=== PATIENT | female | born 1995 | race Caucasian/White ===

== ENCOUNTER 2017-12-10 22:28 | Emergency (ER) | payer OTHER, MEDICAID ==
[~2017-12-10] VITALS: Ht 160 cm; Wt 65.8 kg
[~2017-12-10 22:28] MED LIST: BACTRIM DS TAB1 EACH PO; IBUPROFEN 600600 M1 PO; NOHOMEMEDICATIONS; NORCO 10-325 T1 EACH PO; NORCO 5-325 TA1 EACH PO; PYRIDIUM200 MG PO; TRAMADOL 50 MG50 MG PO
[2017-12-10] MEDS ORDERED: ULTRAM 50MG TAB50 MG PO (22:57)
[2017-12-10 23:09] VITALS: BP 143/79
== END 2017-12-10 23:10 | disposition home or self-care (01) ==
LOC: M.ERS 22:28
DX: S60.211A Contusion of right wrist, initial encounter (principal); S40.011A Contusion of right shoulder, initial encounter; W10.9XXA Fall (on) (from) unspecified stairs and steps, initial encounter; Y93.89 Activity, other specified; Y92.89 Other specified places as the place of occurrence of the external cause; Y99.8 Other external cause status

== ENCOUNTER 2019-07-23 14:48 | Emergency (ER) | payer OTHER ==
[~2019-07-23] VITALS: Ht 160 cm; Wt 77.1 kg
[~2019-07-23 14:48] MED LIST changes: +ULTRAM 50MG TAB50 MG PO
[2019-07-23] MEDS ORDERED: LISINOPRIL2.5 MG PO (14:57)
[2019-07-23] MEDS ORDERED: ALPRAZOLAM XR3 MG PO (14:57)
[2019-07-23 15:21] LABS: URINE BILIRUBIN NEGATIVE (Negative); URINE BLOOD TRACE (Negative); URINE CLARITY SL CLOUDY; URINE COLOR YELLOW; URINE GLUCOSE-RANDOM NEGATIVE (Negative); URINE KETONES NEGATIVE (Negative); URINE LEUKOCYTES-REFLEX 1+ (Negative); URINE PROTEIN TRACE (Negative); URINE SPECIFIC GRAVITY >= 1.030 (1.005-1.030)
[2019-07-23 15:22] LABS: URINE NITRITE-REFLEX POSITIVE (Negative)
[2019-07-23 15:31] LABS: SQUAMOUS >10 Many /LPF (0-3)
[2019-07-23 15:32] LABS: BACTERIA-REFLEX >30 Many /HPF (None Seen); CASTS None Seen /LPF (None Seen); CRYSTALS None Seen /LPF (None Seen); MUCUS 4-6 Moderate strn/LPF (None Seen); URINE RBC 3-10 Few /HPF (0-2)
[2019-07-23 16:18] LABS: ABSOLUTE BASOPHILS 0.1 thou/uL (0.0-0.2); ABSOLUTE EOSINOPHILS 0.1 thou/uL (0.0-0.7); ABSOLUTE LYMPHOCYTES 2.6 thou/uL (0.8-5.3); ABSOLUTE MONOCYTES 0.7 thou/uL (0.0-1.2); ABSOLUTE NEUTROPHILS 6.6 thou/uL (1.6-8.1); HEMATOCRIT 41.2 % (37.0-47.0); HEMOGLOBIN 13.9 gm/dL (12.0-15.0); LYMPHOCYTES 25.4 %; MCH 28.8 pg (26.0-34.0); MCHC 33.8 g/dL (28.0-37.0); MCV 85.4 fL (80.0-100.0); MONOCYTES 6.9 %; MPV 8.2 fl. (7.2-11.1); NUCLEATED RBCS 0 /100WBC; PLATELET COUNT* 301 thou/uL (150-400); POLYS 65.7 %; RBC 4.82 mil/uL (4.20-5.00); RDW-CV 13.8 % (10.5-14.5); WBC 10.1 thou/uL (4.0-11.0)
[2019-07-23 16:30] LABS: CALCIUM 9.1 mg/dL (8.5-10.1); CREATININE 0.7 mg/dL (0.6-1.3); POTASSIUM 3.8 mmol/L (3.5-5.1)
[2019-07-23 16:34] LABS: ALBUMIN 3.6 g/dL (3.4-5.0); TOTAL BILIRUBIN 0.4 mg/dL (<0.1-1.0); TOTAL PROTEIN 7.5 g/dL (6.4-8.2)
[2019-07-23] MEDS ORDERED: ONDANSETRON HCL4 M2 PO ×3 (17:33→17:34)
[2019-07-23] MEDS ORDERED: MACROBID 100 M100 M2 PO ×3 (17:33→17:34)
[2019-07-23] MEDS ORDERED: HYDROXYZINE HCL25 M2 PO ×3 (17:33→17:34)
[2019-07-23] MEDS ORDERED: NABUMETONE 750750 M1 PO ×3 (17:33→17:34)
[2019-07-23 18:07] VITALS: BP 109/65
--- NOTE | 2019-07-24 11:42 | EKG ---
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
[2019-07-24] MEDS ORDERED: PHENAZOPYRIDIN200 M2 PO ×3 (16:46→16:47)
[2019-07-24] MEDS ORDERED: KEFLEX500 M1 PO (16:47)
== END 2019-07-23 18:08 ==
LOC: M.ERS 14:48
PROVIDERS: Nurse Practitioner Family
DX: F41.9 Anxiety disorder, unspecified (principal); N39.0 Urinary tract infection, site not specified; I10 Essential (primary) hypertension

== ENCOUNTER 2019-07-24 15:13 | Emergency (ER) | payer OTHER ==
[~2019-07-24] VITALS: Ht 160 cm; Wt 77.1 kg
[~2019-07-24 15:13] MED LIST changes: +ALPRAZOLAM XR3 MG PO; +HYDROXYZINE HCL25 M2 PO; +LISINOPRIL2.5 MG PO; +MACROBID 100 M100 M2 PO; +NABUMETONE 750750 M1 PO; +ONDANSETRON HCL4 M2 PO
[2019-07-24 15:58] LABS: HEMATOCRIT 44.2 % (37.0-47.0); MCH 28.9 pg (26.0-34.0); MCV 84.9 fL (80.0-100.0); MPV 8.3 fl. (7.2-11.1); RBC 5.21 mil/uL (4.20-5.00); RDW-CV 13.9 % (10.5-14.5); WBC 7.5 thou/uL (4.0-11.0)
[2019-07-24 16:22] LABS: CALCIUM 9.8 mg/dL (8.5-10.1); CREATININE 0.7 mg/dL (0.6-1.3); POTASSIUM 3.8 mmol/L (3.5-5.1)
[2019-07-24 16:26] LABS: TOTAL BILIRUBIN 0.8 mg/dL (<0.1-1.0); TOTAL PROTEIN 8.4 g/dL (6.4-8.2)
[2019-07-24 16:37] LABS: URINE BILIRUBIN NEGATIVE (Negative); URINE BLOOD TRACE (Negative); URINE CLARITY CLEAR; URINE COLOR YELLOW; URINE GLUCOSE-RANDOM NEGATIVE (Negative); URINE KETONES 1+ (Negative); URINE LEUKOCYTES-REFLEX 1+ (Negative); URINE NITRITE-REFLEX NEGATIVE (Negative); URINE PROTEIN NEGATIVE (Negative); URINE UROBILINOGEN 0.2 E.U./dl (0.2-1.0)
[2019-07-24] MEDS ORDERED: PHENAZOPYRIDIN200 M2 PO ×3 (16:46→16:47)
[2019-07-24] MEDS ORDERED: KEFLEX500 M1 PO (16:47)
[2019-07-24 16:51] LABS: SQUAMOUS >10 Many /LPF (0-3)
[2019-07-24 16:52] LABS: CASTS None Seen /LPF (None Seen); MUCUS 0-3 Light strn/LPF (None Seen)
[2019-07-24 16:53] LABS: BACTERIA-REFLEX 1-9 Few /HPF (None Seen); CRYSTALS None Seen /LPF (None Seen); URINE RBC 0-2 Rare /HPF (0-2); URINE WBC-REFLEX 0-5 Rare /HPF (0-5); YEAST-REFLEX Present (None Seen)
[2019-07-24 17:13] LABS: ACETAMINOPHEN < 2 ug/mL (10-30); ALCOHOL < 10 mg/dL (<10); SALICYLATE 3.9 mg/dL (2.8-20.0)
[2019-07-24 17:15] LABS: AMP/METHAMP POSITIVE (Negative); BARBITURATES Negative (Negative); BENZODIAZEPINES POSITIVE (Negative); COCAINE POSITIVE (Negative); METHADONE Negative (Negative); OPIATES POSITIVE (Negative); PCP Negative (Negative); THC POSITIVE (Negative)
[2019-07-24 18:45] VITALS: BP 140/89
--- NOTE | 2019-07-25 12:57 | EKG ---
[place] [address] ELECTROCARDIOGRAM REPORT Name: STEVEN DRUMMOND Room: [facility]#: [id number] Admission: 07/24/19 Attend Phys: Discharge: 07/24/19 Date of : [birth year] Report #: [id number] THIS REPORT FOR: //name// [facility] ED Test Date: 2019-07-24 Test Time: 16:12:08 Pat Name: STEVEN DRUMMOND Department: Room: Gender: F [employer] Utility Worker: : 1995 Requested By: Seamus Garcia Order Number: [id number] MD: Terry Ta Measurements Intervals [place] Rate: 72 P: 21 NM: 140 QRS: 60 QRSD: 101 T: 19 QT: 438 QTc: 480 Interpretive Statements Sinus arrhythmia Borderline prolonged QT interval Compared to ECG 07/23/2019 15:20:39 Sinus tachycardia no longer present Electronically Signed On 07-25-2019 12:57:20 [employer]IDE [employer] by eTrry Ta [email or web address] <ELECTRONICALLY SIGNED> By: Dee Ta MD, [facility] 07/25/19 1257 11 11 Dee Ta MD, [facility] /EPI
== END 2019-07-24 18:45 ==
LOC: M.ERS 15:13
PROVIDERS: Emergency Medicine Emergency Medical Services
DX: N39.0 Urinary tract infection, site not specified (principal); F41.9 Anxiety disorder, unspecified; I10 Essential (primary) hypertension; Z79.899 Other long term (current) drug therapy

== ENCOUNTER 2019-10-06 03:54 | Emergency (ER) | payer OTHER ==
[~2019-10-06] VITALS: Ht 160 cm; Wt 73.9 kg
[~2019-10-06 03:54] MED LIST changes: +KEFLEX500 M1 PO; +PHENAZOPYRIDIN200 M2 PO
[2019-10-06 05:09] VITALS: BP 145/90
== END 2019-10-06 05:09 ==
LOC: M.ERS 03:54
DX: M25.562 Pain in left knee (principal); F41.9 Anxiety disorder, unspecified; I10 Essential (primary) hypertension; F17.200 Nicotine dependence, unspecified, uncomplicated; Z90.89 Acquired absence of other organs